=== PATIENT | male | born 1960 | race Caucasian/White ===

== ENCOUNTER 2018-04-03 00:14 | Inpatient (IN) ==
[2018-04-03] MEDS ORDERED: *HR* LORazepam 2 MG/ML VIAL IVP PRN ×3 (03:30)
[2018-04-03 06:20] LABS: Basophils # 0.1 K/mcL (0.0-0.2); Basophils % 1.6 %; Eosinophils # 0.1 K/mcL (0.0-0.6); Eosinophils % 3.2 %; Hematocrit 39.4 % (37.5-50.1); Hemoglobin 14.2 g/dL (12.9-16.9); Lymphocytes # 1.3 K/mcL (0.6-4.6); Lymphocytes % 43.2 %; Mean Corpuscular Hemoglobin 38.3 pg (28.0-33.3); Mean Corpuscular Volume 106.2 fL (83.0-100.0); Mean Platelet Volume 8.4 fL (9.4-12.4); Monocytes # 0.4 K/mcL (0.0-1.3); Monocytes % 14.3 %; Neutrophils # 1.2 K/mcL (1.6-8.9); Platelet Count 228 K/mcL (140-400); Red Blood Count 3.71 M/mcL (4.19-5.50); Red Cell Distribution Width 14.2 % (11.5-14.5); Segmented Neutrophils % 37.7 %
[2018-04-03 06:48] LABS: BUN/Creatinine Ratio 8 (6-26); Blood Urea Nitrogen 3 mg/dL (6-20); Calcium 8.3 mg/dL (8.6-10.3); Carbon Dioxide 24 mEq/L (23-29); Chloride 98 mEq/L (98-107); Glucose 73 mg/dL (70-105); Osmolality,Calculated 267 (280-300); Potassium 3.4 mEq/L (3.5-5.1); Sodium 131 mEq/L (136-145); eGFR For Non-African Americans > 60 (> 60)
[2018-04-03] MEDS ORDERED: Naloxone 0.4 MG/ML INJ IVP PRN (10:47)
[2018-04-03] MEDS ORDERED: Potassium Chloride 40 MEQ, Lidocaine 1% 2 ML in D5% in Water 500 ML IVPB ONE (10:51)
[2018-04-03] MEDS ORDERED: Potassium Chloride 20 MEQ in D5% in Water 1,000 ML IVC SCH (11:00)
[2018-04-03] MEDS ORDERED: D5% in Water 1,000 ML IVC ONE (11:11)
[2018-04-03] MEDS ORDERED: Thiamine (B-1) 100 MG, Folic Acid 1 MG, MVI, adult with vitamin K 10 ML in 0.9 % Sodi... IVPB SCH ×2 (11:30→18:00)
[2018-04-03] MEDS ORDERED: FLUNISOLIDE IH PRN (12:00)
[2018-04-03 12:19] LABS: Prothrombin Time 10.9 Seconds (9.4-12.1)
[2018-04-03 12:29] LABS: BUN/Creatinine Ratio 10 (6-26); Blood Urea Nitrogen 4 mg/dL (6-20); Calcium 9.1 mg/dL (8.6-10.3); Carbon Dioxide 27 mEq/L (23-29); Chloride 95 mEq/L (98-107); Glucose 64 mg/dL (70-105); Osmolality,Calculated 269 (280-300); Potassium 3.9 mEq/L (3.5-5.1); Sodium 132 mEq/L (136-145); eGFR For Non-African Americans > 60 (> 60)
[2018-04-03] MEDS: D5% in Water 1,000 ML IVC SCH ×2 (15:24→23:30)
--- NOTE | 2018-04-03 17:07 | Internal Med History&Physical ---
Date of Encounter: 04/03/18 Time of Encounter: 09:05 Internal Medicine - H&P: HPI Chief complaint: confusion, recurrent epistaxis, ?melena Admitted From: Hospital to Hospital Transfer History of present illness: Mr. Baron is a 57 year old male with past medical history of seizure disorder , alcohol abuse, was transferred from OSH due to concern of confusion, black stool, and recurrent epistaxis. Patient is a poor historian hence history is limited but patient does endorse history of black stool that he noticed for the last few weeks. Also admits to drinking unquantifiable amount of beer every day. Otherwise, denies any chest pain, difficulty breathing, cough, sputum production, abdominal pain, diarrhea, or dysuria. No headache, blurring of vision, dysarthria, or focal weakness or numbness. He was afebrile and hemodynamically stable. Upon reviewing the workup from the outside hospital, it shows that his presenting sodium was 118. It appears that he had similar episode in 02/2016. Otherwise, his hemoglobin was stable, no coagulopathy or thrombocytopenia, FOBT negative, and alcohol level of 304. He was given 1 L of normal saline as a bolus followed by maintenance fluid of 125ml/hr at the OSH and transferred to [facility] for further management. Patient's sodium this morning at 6 AM was 131. Past Med Surg Social Fam HX - Past Medical History Attestation: Yes The following information was validated with the patient. Medical history: cancer, cirrhosis, COPD, myocardial infarction, seizures, other Additional medical history: epilepsy, Psychiatric history: no psych history - Past Surgical History Surgical History: other Additional surgical history: cyst removal from inner thigh. right 4th digit surgery. skin cancers removed from back. 04/17/16 SR REVERSE BALL AND SOCKET @[facility] W/DR JONES. multiple tooth extractions - Social History Smoking Status: Current every day smoker Smokeless Tobacco Status: No Alcohol use: heavy, recent Drug use: none - Family History Father Living Status: Hx Family Cancer: Yes Internal Medicine - H&P: Meds Albuterol Sulfate [Ventolin Hfa] 2 puff PO Q4H PRN 04/17/16 [History] Potassium Chloride [K-Tab ER] 10 meq PO BID 04/17/16 [History] Sodium Chloride [Sodium Chloride Tab] 1 gm PO DAILY 09/12/16 [History] DiphenhydraMINE [Benadryl] 25 - 50 mg PO HS PRN 04/02/18 [History] Ferrous Sulfate [Iron] 325 mg PO BID 04/02/18 [History] Loratadine/Pseudophed (12 HR) [Claritin D (12HR)] 1 each PO DAILY PRN 04/02/18 [ History] Meloxicam [Mobic] 7.5 mg PO DAILY 04/02/18 [History] Phenytoin ER [Dilantin ER] 100 mg PO TID 04/02/18 [History] Mometasone Furoate [Asmanex Hfa] 1 puff IH DAILY 04/03/18 [History] 3 Allergy/AdvReac Type Severity Reaction Status Date / Time No Known Allergies Allergy Verified 04/03/18 08:56 All Systems PM: A 10-system review of systems was performed and is negative for pertinent findings except as documented above in the HPI. - Constitutional Vitals: Temp Pulse Resp BP Pulse Ox 97.4 F L 85 16 142/81 93 04/03/18 16:03 04/03/18 16:03 04/03/18 16:03 04/03/18 16:03 04/03/18 16:03 Exam: General: Alert and oriented, not in acute distress. HEENT:EOM, pupils equal, round and reactive. Crusted, old blood noted on both of his nostrils, no active bleeding noted. Cardiovascular:Normal S1 & S2, No JVD. Pulse regular. Lungs: clear to auscultation, no wheezes/rales Abdomen:Soft, non-tender, no rigidity. Extremities:No deformity or swelling Neurological:Normal cognition and motor skills. Non-focal Skin:Normal color, no rash, no lesions. Pulses:Carotid and radial pulses normal +2. Rest of the physical exam is non contributory Internal Med - H&P Results - Labs CBC & Chem 7: 04/03/18 05:59 04/03/18 11:41 Labs: Short CBC 04/03/18 Range/Units 05:59 WBC 3.1 L (4.3-11.1) K/mcL Hgb 14.2 (12.9-16.9) g/dL Hct 39.4 (37.5-50.1) % Plt Count 228 (140-400) K/mcL Neutrophils # 1.2 L (1.6-8.9) K/mcL BMP 04/03/18 04/03/18 05:59 11:41 Sodium 131 L 132 L Potassium 3.4 L 3.9 Chloride 98 95 L Carbon Dioxide 24 27 BUN 3 L 4 L Creatinine 0.37 L 0.42 L Glucose 73 64 L Calcium 8.3 L 9.1 - Assessment and plan (1) Hyponatremia Current Visit: Yes Status: Acute Assessment and plan: Likely due to beer potomania Was given NS as a bolus and maintenance at the OSH ED corrected to 131 this AM -> 132 at 1140 Will start D5W at 150ml to prevent rapid correction, aim for 126 at 1030 pm tonight BMP Q4 (2) Melena Current Visit: Yes Status: Resolved Assessment and plan: Endorses history of "black stool" but patient's medication list include Fe sulfate and FOBT -ve Hb also stable at 13-14 without hemodynamic instability doubtful there is GI bleed (3) Seizure Current Visit: No Status: Chronic Assessment and plan: Dilantin level low at 0.6, probably due to noncompliance resume home meds (4) Alcohol abuse Current Visit: Yes Status: Acute Assessment and plan: Patient drinks unquantifiable amount of beer per day, also has hyponatremia as a result of that alcohol level 304 on presentation Patient currently alert and oriented 3 and there is no evidence of confusion His previous episode of confusion may have been due to EtOH intoxication, no signs of Wernicke's encephalopathy CIWA protocol, vitamin supplementation, nutrition consult SW consult (5) Recurrent epistaxis Current Visit: No Status: Chronic Assessment and plan: Currently not actively bleeding, hemodynamically stable, and hemoglobin also stable at 14 No indication for ENT evaluation (6) DVT prophylaxis Current Visit: Yes Status: Acute Assessment and plan: EPCD - Time Spent With Patient Total time spent is greater than 50% in coordination of care (as documented) at patient's floor/unit and/or counseling patient:
[2018-04-03 17:08] LABS: BUN/Creatinine Ratio 13 (6-26); Blood Urea Nitrogen 6 mg/dL (6-20); Calcium 8.9 mg/dL (8.6-10.3); Carbon Dioxide 28 mEq/L (23-29); Chloride 93 mEq/L (98-107); Glucose 147 mg/dL (70-105); Osmolality,Calculated 266 (280-300); Sodium 128 mEq/L (136-145); eGFR For Non-African Americans > 60 (> 60)
[2018-04-03] MEDS ORDERED: Loratadine/Pseudophed (12 HR) 1 EACH TABLET PO PRN (17:16)
[2018-04-03 19:53] LABS: BUN/Creatinine Ratio 13 (6-26); Blood Urea Nitrogen 6 mg/dL (6-20); Calcium 8.8 mg/dL (8.6-10.3); Carbon Dioxide 29 mEq/L (23-29); Chloride 93 mEq/L (98-107); Glucose 153 mg/dL (70-105); Osmolality,Calculated 263 (280-300); Potassium 4.1 mEq/L (3.5-5.1); Sodium 126 mEq/L (136-145); eGFR For Non-African Americans > 60 (> 60)
[2018-04-03] MEDS: Budesonide Neb 0.5 MG/2 ML IH SCH (21:33)
[2018-04-03 23:16] LABS: BUN/Creatinine Ratio 18 (6-26); Blood Urea Nitrogen 7 mg/dL (6-20); Calcium 8.8 mg/dL (8.6-10.3); Carbon Dioxide 26 mEq/L (23-29); Chloride 93 mEq/L (98-107); Glucose 103 mg/dL (70-105); Osmolality,Calculated 260 (280-300); Potassium 3.8 mEq/L (3.5-5.1); Sodium 126 mEq/L (136-145); eGFR For Non-African Americans > 60 (> 60)
[2018-04-04 03:41] LABS: Basophils % 0.4 %; Eosinophils # 0.1 K/mcL (0.0-0.6); Eosinophils % 1.2 %; Hematocrit 36.7 % (37.5-50.1); Hemoglobin 13.5 g/dL (12.9-16.9); Immature Granulocytes % 0.4 % (0-4); Lymphocytes # 1.5 K/mcL (0.6-4.6); Lymphocytes % 21.7 %; Mean Corpuscular HGB Conc 36.8 g/dL (31.6-35.5); Mean Corpuscular Hemoglobin 38.9 pg (28.0-33.3); Mean Corpuscular Volume 105.8 fL (83.0-100.0); Mean Platelet Volume 8.8 fL (9.4-12.4); Monocytes % 14.7 %; Platelet Count 226 K/mcL (140-400); Red Blood Count 3.47 M/mcL (4.19-5.50); Red Cell Distribution Width 14.2 % (11.5-14.5); Segmented Neutrophils % 61.6 %
[2018-04-04 03:51] LABS: Neutrophils # 4.3 K/mcL (1.6-8.9)
[2018-04-04 03:52] LABS: BUN/Creatinine Ratio 13 (6-26); Blood Urea Nitrogen 5 mg/dL (6-20); Calcium 8.9 mg/dL (8.6-10.3); Carbon Dioxide 27 mEq/L (23-29); Chloride 93 mEq/L (98-107); Glucose 129 mg/dL (70-105); Magnesium 1.6 mg/dL (1.6-2.6); Osmolality,Calculated 259 (280-300); Potassium 3.5 mEq/L (3.5-5.1); Sodium 125 mEq/L (136-145); eGFR For Non-African Americans > 60 (> 60)
[2018-04-04] MEDS: D5% in Water 1,000 ML IVC SCH (06:31)
[2018-04-04] MEDS ORDERED: MOMETASONE FUROATE IH SCH (09:00)
[2018-04-04] MEDS: Budesonide Neb 0.5 MG/2 ML IH SCH (11:03)
[2018-04-04 15:33] LABS: BUN/Creatinine Ratio 13 (6-26); Blood Urea Nitrogen 6 mg/dL (6-20); Calcium 9.2 mg/dL (8.6-10.3); Carbon Dioxide 28 mEq/L (23-29); Chloride 90 mEq/L (98-107); Glucose 125 mg/dL (70-105); Osmolality,Calculated 257 (280-300); Potassium 3.7 mEq/L (3.5-5.1); Sodium 124 mEq/L (136-145); eGFR For Non-African Americans > 60 (> 60)
[2018-04-04 15:50] VITALS: BP 112/70
--- NOTE | 2018-04-04 17:47 | Discharge Summary ---
- NOTES TO OUTPATIENT PROVIDER Notes to Outpatient Provider: Patient with a history of EtOH abuse was admitted from outside hospital for severe hyponatremia of 118, likely due to beer potomania. There was also a mention of melena from the outside hospital record but his FOBT was negative and hemoglobin was stable at 13 -14. Sodium remained 125 24 hours later and he was advised to stay inpatient for further monitoring. Despite extensive discussion on the possible consequences including cerebral edema, seizure, and , patient insisted on leaving AMA. Advised the patient to be compliant to salt tab and abstinence from EtOH with PCP Follow up with BMP. Date of Encounter: 04/04/18 Time of Encounter: 13:45 - Discharge Diagnosis (1) Hyponatremia Priority: Primary Status: Acute (2) Melena Priority: Secondary Status: Resolved (3) Seizure Priority: Secondary Status: Chronic (4) Alcohol abuse Priority: Secondary Status: Inactive (5) Recurrent epistaxis Priority: Secondary Status: Inactive (6) DVT prophylaxis Priority: Secondary Status: Acute Hospital course: Mr. Baron is a 57 year old male with history of EtOH abuse was admitted from outside hospital for severe hyponatremia of 118, likely due to beer potomania. There was also a mention of melena from the outside hospital record but his FOBT was negative and hemoglobin was stable at 13 -14. Sodium remained 125 24 hours later and he was advised to stay inpatient for further monitoring. Despite extensive discussion on the possible consequences including cerebral edema, seizure, and , patient insisted on leaving AMA. Advised the patient to be compliant to salt tab and abstinence from EtOH with PCP Follow up with BMP. Discharge discussed with: patient, nurse, case management - Time Spent with Patient Total time spent providing and/or coordinating discharge services: Greater than 30 minutes - Discharge Medications Home Medications: Albuterol Sulfate [Ventolin Hfa] 2 puff PO Q4H PRN 04/17/16 [History] Potassium Chloride [K-Tab ER] 10 meq PO BID 04/17/16 [History] Sodium Chloride [Sodium Chloride Tab] 1 gm PO DAILY 04/17/16 [History] DiphenhydraMINE [Benadryl] 25 - 50 mg PO HS PRN 04/02/18 [History] Ferrous Sulfate [Iron] 325 mg PO BID 04/02/18 [History] Loratadine/Pseudophed (12 HR) [Claritin D (12HR)] 1 each PO DAILY PRN 04/02/18 [ History] Meloxicam [Mobic] 7.5 mg PO DAILY 04/02/18 [History] Phenytoin ER [Dilantin ER] 100 mg PO TID 04/02/18 [History] Mometasone Furoate [Asmanex Hfa] 1 puff IH DAILY 04/03/18 [History] Allergies/Adverse Reactions: 3 Allergy/AdvReac Type Severity Reaction Status Date / Time No Known Allergies Allergy Verified 04/03/18 08:56 Date of admission: 04/04/18 11:14 Primary care physician: Gabi Lynne CNP Consults: 04/03/18 03:30 Consult to Director Of Government Sales [CONS] Routine Reason for SW Consult: ETOH 04/03/18 17:15 Consult to Nutrition [CONS] Routine Comment: Consulting Provider: NUTRITION Reason for Dietary Consult: PO Supplementation - Constitutional Vitals: Temp Pulse Resp BP Pulse Ox 98.1 F 70 19 112/70 93 04/04/18 15:49 04/04/18 15:49 04/04/18 15:49 04/04/18 15:49 04/04/18 15:49 Exam: General: Alert and oriented, not in acute distress. HEENT:EOM, pupils equal, round and reactive. Crusted, old blood noted on both of his nostrils, no active bleeding noted. Cardiovascular:Normal S1 & S2, No JVD. Pulse regular. Lungs: clear to auscultation, no wheezes/rales Abdomen:Soft, non-tender, no rigidity. Extremities:No deformity or swelling Neurological:Normal cognition and motor skills. Non-focal Skin:Normal color, no rash, no lesions. Pulses:Carotid and radial pulses normal +2. Rest of the physical exam is non contributory - Patient Status Disposition: Left Against Medical Advice Condition: Serious Overall status at discharge: patient is not back to baseline - Discharge Instructions Follow Up With: Gabi Lynne CNP [Primary Care Provider] -
[2018-04-06] MEDS ORDERED: Folic Acid 1 MG TABLET PO SCH (09:00)
[2018-04-06] MEDS ORDERED: Thiamine (B-1) 100 MG TABLET PO SCH (09:00)
== END 2018-04-04 19:46 | disposition left against medical advice (07) | DRG 426 ==
LOC: 2ANU → SUATTDRO 02:10 → 2ANU 02:18
PROVIDERS: ADMIT Family Medicine; ATTEND Internal Medicine

== ENCOUNTER 2020-06-08 18:51 | Inpatient (IN) ==
[2020-06-08] MEDS ORDERED: Naloxone 0.4 MG/ML INJ IVP PRN (20:12)
[2020-06-08] MEDS ORDERED: 0.9 % Sodium Chloride 1,000 ML IVC SCH (20:15)
[2020-06-08] MEDS ORDERED: *HR* LORazepam 2 MG/ML VIAL IVP PRN ×3 (21:38)
[2020-06-08 22:42] LABS: Blood Urea Nitrogen < 2 mg/dL (6-20); Calcium 8.2 mg/dL (8.6-10.3); Carbon Dioxide 25 mEq/L (23-29); Chloride 90 mEq/L (98-107); Creatine Kinase 502 Units/L (30-223); Glucose 71 mg/dL (70-105); Sodium 129 mEq/L (136-145); eGFR For African Americans > 60 (> 60); eGFR For Non-African Americans > 60 (> 60)
[2020-06-08] MEDS ORDERED: Acetaminophen 325 MG TABLET PO PRN (23:08)
[2020-06-09] MEDS: Nicotine 14 MG PATCH.TD24 TD SCH ×2 (01:38→08:02)
[2020-06-09 02:36] LABS: Basophils % 0.4 %; Eosinophils % 0.2 %; Hematocrit 28.7 % (37.5-50.1); Hemoglobin 9.9 g/dL (12.9-16.9); Immature Granulocytes % 0.2 % (0-4); Lymphocytes # 0.7 K/mcL (0.6-4.6); Lymphocytes % 14.9 %; Mean Corpuscular HGB Conc 34.5 g/dL (31.6-35.5); Mean Corpuscular Hemoglobin 37.4 pg (28.0-33.3); Mean Corpuscular Volume 108.3 fL (83.0-100.0); Mean Platelet Volume 8.8 fL (9.4-12.4); Monocytes # 0.7 K/mcL (0.0-1.3); Monocytes % 14.7 %; Neutrophils # 3.4 K/mcL (1.6-8.9); Platelet Count 309 K/mcL (140-400); Red Blood Count 2.65 M/mcL (4.19-5.50); Segmented Neutrophils % 69.6 %; White Blood Count 4.9 K/mcL (4.3-11.1)
[2020-06-09 02:53] LABS: Alanine Aminotransferase 20 Units/L (7-52); Albumin/Globulin Ratio 0.9 (1.1-2.2); Alkaline Phosphatase 91 Units/L (34-104); Aspartate Amino Transferase 41 Units/L (13-39); BUN/Creatinine Ratio 7 (6-26); Bilirubin,Total 0.6 mg/dL (0.3-1.0); Blood Urea Nitrogen 2 mg/dL (6-20); Calcium 8.1 mg/dL (8.6-10.3); Carbon Dioxide 22 mEq/L (23-29); Chloride 92 mEq/L (98-107); Globulin 3.2 g/dL (2.4-3.5); Glucose 64 mg/dL (70-105); Magnesium 1.6 mg/dL (1.6-2.6); Osmolality,Calculated 262 (280-300); Phosphorous 3.1 mg/dL (2.7-4.5); Potassium 2.6 mEq/L (3.5-5.1); Sodium 129 mEq/L (136-145); Total Protein 6.2 g/dL (6.4-8.9); eGFR For African Americans > 60 (> 60); eGFR For Non-African Americans > 60 (> 60)
[2020-06-09] MEDS ORDERED: Magnesium Sulfate 1 GM/102 ML PIGGYBACK IVPB ONE (03:37)
[2020-06-09 03:56] LABS: Folate > 22.3 ng/mL (3.0-16.0)
[2020-06-09 03:57] LABS: Vitamin B12 568 pg/mL (250-1100)
[2020-06-09] MEDS ORDERED: Isovue-370 500 ML BOTTLE IVP ONE (12:52)
[2020-06-09] MEDS ORDERED: 0.9 % Sodium Chloride 1,000 ML IVC SCH (15:45)
[2020-06-09] MEDS ORDERED: 0.9 % Sodium Chloride 500 ML IVC SCH ×2 (15:45→16:00)
[2020-06-09] MEDS: Thiamine (B-1) 100 MG, Folic Acid 1 MG, MVI, adult with vitamin K 10 ML in 0.9 % Sodi... IVPB SCH (20:03)
[2020-06-10 02:02] LABS: Basophils % 0.8 %; Eosinophils # 0.1 K/mcL (0.0-0.6); Eosinophils % 2.3 %; Hematocrit 27.5 % (37.5-50.1); Hemoglobin 9.4 g/dL (12.9-16.9); Immature Granulocytes % 0.2 % (0-4); Lymphocytes # 1.2 K/mcL (0.6-4.6); Lymphocytes % 21.7 %; Mean Corpuscular HGB Conc 34.2 g/dL (31.6-35.5); Mean Corpuscular Hemoglobin 38.4 pg (28.0-33.3); Mean Corpuscular Volume 112.2 fL (83.0-100.0); Mean Platelet Volume 8.5 fL (9.4-12.4); Monocytes # 1.1 K/mcL (0.0-1.3); Monocytes % 21.2 %; Neutrophils # 2.9 K/mcL (1.6-8.9); Platelet Count 285 K/mcL (140-400); Red Blood Count 2.45 M/mcL (4.19-5.50); Red Cell Distribution Width 14.4 % (11.5-14.5); Segmented Neutrophils % 53.8 %; White Blood Count 5.3 K/mcL (4.3-11.1)
[2020-06-10 02:18] LABS: Platelet Estimate Normal (Normal)
[2020-06-10 02:23] LABS: Alanine Aminotransferase 19 Units/L (7-52); Albumin/Globulin Ratio 0.9 (1.1-2.2); Alkaline Phosphatase 76 Units/L (34-104); Aspartate Amino Transferase 30 Units/L (13-39); Bilirubin,Total 0.4 mg/dL (0.3-1.0); Blood Urea Nitrogen < 2 mg/dL (6-20); Carbon Dioxide 28 mEq/L (23-29); Chloride 95 mEq/L (98-107); Globulin 3.2 g/dL (2.4-3.5); Glucose 99 mg/dL (70-105); Magnesium 1.6 mg/dL (1.6-2.6); Phosphorous 2.5 mg/dL (2.7-4.5); Potassium 2.9 mEq/L (3.5-5.1); Sodium 129 mEq/L (136-145); Total Protein 6.2 g/dL (6.4-8.9); eGFR For African Americans > 60 (> 60); eGFR For Non-African Americans > 60 (> 60)
[2020-06-10] MEDS ORDERED: Magnesium Sulfate 1 GM/102 ML PIGGYBACK IVPB ONE (08:41)
[2020-06-10] MEDS: Nicotine 14 MG PATCH.TD24 TD SCH (09:00)
[2020-06-10] MEDS: Thiamine (B-1) 100 MG, Folic Acid 1 MG, MVI, adult with vitamin K 10 ML in 0.9 % Sodi... IVPB SCH (18:12)
[2020-06-11] MEDS: Nicotine 14 MG PATCH.TD24 TD SCH (10:57)
[2020-06-11 16:03] LABS: Basophils % 0.7 %; Eosinophils # 0.2 K/mcL (0.0-0.6); Eosinophils % 3.5 %; Hematocrit 27.5 % (37.5-50.1); Hemoglobin 9.2 g/dL (12.9-16.9); Immature Granulocytes % 0.3 % (0-4); Lymphocytes # 1.2 K/mcL (0.6-4.6); Lymphocytes % 19.3 %; Mean Corpuscular HGB Conc 33.5 g/dL (31.6-35.5); Mean Corpuscular Hemoglobin 36.9 pg (28.0-33.3); Mean Corpuscular Volume 110.4 fL (83.0-100.0); Mean Platelet Volume 8.2 fL (9.4-12.4); Monocytes % 15.8 %; Neutrophils # 3.6 K/mcL (1.6-8.9); Platelet Count 253 K/mcL (140-400); Red Blood Count 2.49 M/mcL (4.19-5.50); Red Cell Distribution Width 13.8 % (11.5-14.5); Segmented Neutrophils % 60.4 %
[2020-06-11 16:23] LABS: Alanine Aminotransferase 18 Units/L (7-52); Albumin 2.9 g/dL (3.5-5.7); Albumin/Globulin Ratio 0.9 (1.1-2.2); Alkaline Phosphatase 73 Units/L (34-104); Aspartate Amino Transferase 26 Units/L (13-39); Bilirubin,Total 0.3 mg/dL (0.3-1.0); Blood Urea Nitrogen < 2 mg/dL (6-20); Calcium 8.1 mg/dL (8.6-10.3); Carbon Dioxide 30 mEq/L (23-29); Chloride 89 mEq/L (98-107); Globulin 3.2 g/dL (2.4-3.5); Glucose 104 mg/dL (70-105); Potassium 3.4 mEq/L (3.5-5.1); Sodium 123 mEq/L (136-145); Total Protein 6.1 g/dL (6.4-8.9); eGFR For African Americans > 60 (> 60); eGFR For Non-African Americans > 60 (> 60)
[2020-06-11 17:03] VITALS: BP 131/74
[2020-06-11 18:58] LABS: Macrocytosis Present (Not Present); Platelet Estimate Normal (Normal)
== END 2020-06-11 18:56 | disposition home health service (06) | DRG 347 ==
LOC: 3NENU → SUATTDRO 21:00
PROVIDERS: ADMIT Internal Medicine; ATTEND Internal Medicine